=== PATIENT | female | born 1995 | race Two or more races ===

== ENCOUNTER 2024-09-04 10:20 | Emergency (ER) | payer OTHER, SELFPAY ==
[2024-09-04 10:21] VITALS: BMI 29.0
[2024-09-04 10:45] VITALS: BP 138/83; PULSE 90; RESP 18; TEMP 36.9; O2SAT 100
--- NOTE | 2024-09-04 10:48 | XR_ITS ---
Examination: CT abdomen with intravenous contrast CT pelvis with intravenous contrast 2-D coronal reconstructions 2-D sagittal reconstructions Date and time of exam:. September 06, 1999 3753 Indications: Sudden onset abdominal pain nausea vomiting today. CTDI: vol (mGy) 11.4 DLP: (mGycm) 575 Technique: Multiple axial sections of the abdomen and pelvis have been obtained. 64 slice high-resolution scanner used. 3 mm axial sections have been obtained, post intravenous injection 60 cc [id number] 2-D sagittal, coronal reconstructions obtained. Low dose protocols were performed. One or more of the following dose reduction techniques were used; automated exposure control, adjustment of the mA and/or KV according to patient size, use of iterative reconstruction technique. Findings: Liver mildly irregular in contour no focal liver lesions No gallstones Spleen not enlarged Tiny 1 to 2 mm renal calculi Aorta normal size Mild right hydronephrosis secondary to 4 mm distal right ureterovesical junction calculus No bowel obstruction No pericecal inflammatory change No diverticulitis Bladder intact Moderate to advanced disc narrowing L5-S1 Impression: Mild right hydronephrosis secondary to 4 mm distal right ureterovesical junction calculus
--- NOTE | 2024-09-04 10:49 | PD.EDRME ---
Rapid Medical Screening Exam RME Arrival date/time: 09/04/24 10:20 29 yo f present to Ed for c/o of RLQ pain + n/v I have greeted and performed a focused initial assessment of this patient. A comprehensive ED assessment and evaluation of the patient, analysis of all test results, and completion of the medical decision making process will be conducted by additional ED providers. Chief Complaint: Abdominal Pain Time Seen by Provider: 09/04/24 10:22
[2024-09-04 11:13] LABS: Basophils # (Auto) 0.1 Thou/mm3 (0.0-0.2); Basophils % (Auto) 1 % (0-2.5); Eosinophils # (Auto) 0.1 Thou/mm3 (0.0-0.5); Eosinophils % (Auto) 1 % (0-10); Hematocrit 39.5 % (36.0-46.0); Hemoglobin 13.4 g/dL (12.0-16.0); Immature Granulocytes % (Auto) 0 % (0-0); Immature Granulocytes Auto 0.04 Thou/mm3 (0.00-0.00); Lymphocytes # (Auto) 3.2 Thou/mm3 (1.0-4.8); Lymphocytes % (Auto) 28 % (10-50); Mean Corpuscular HGB Conc 33.9 g/dl (31.0-37.0); Mean Corpuscular Hemoglobin 28.6 pg (25.0-35.0); Mean Corpuscular Volume 84 fL (80-100); Monocytes # (Auto) 0.5 Thou/mm3 (0.0-0.8); Monocytes % (Auto) 5 % (0-12); Neutrophils # (Auto) 7.5 Thou/mm3 (1.8-7.7); Neutrophils % (Auto) 66 % (37-80); Nucleated Red Blood Cell % 0 /100 WBC (0); Platelet Count 325 Thou/mm3 (140-440); RDW Standard Deviation 40.3 fL (36.4-46.3); Red Blood Count 4.69 Miln/mm3 (4.00-5.20); White Blood Count 11.5 Thou/mm3 (3.6-11.0)
[2024-09-04 11:18] LABS: HCG,Qualitative Serum Negative
[2024-09-04] MEDS: SODIUM CHLORIDE 0.9% 1000 ML 1,000 ML 999 ML IV (11:20)
[2024-09-04] MEDS: ONDANSETRON INJ 2 MG/ML INJ 2 ML 4 MG IV (11:21)
[2024-09-04] MEDS: MORPHINE SULF INJ 10 MG/ML VIAL 4 MG IVP (11:22)
[2024-09-04 11:23] LABS: Alanine Aminotransferase 14 U/L (10-49); Albumin, Serum 4.6 gm/dL (3.5-5.0); Albumin/Globulin Ratio 1.6 (1.2-2.2); Alkaline Phosphatase 37 U/L (46-116); Anion Gap 12 (7-16); Aspartate Amino Transferase 18 U/L (0-34); BUN/Creatinine Ratio 15 Ratio (12-20); Bilirubin,Total 0.6 mg/dL (0.3-1.2); Blood Urea Nitrogen 12 mg/dL (9-23); Calcium 9.9 mg/dL (8.3-10.6); Calcium (Corrected) 9.9 mg/dL (8.5-10.1); Carbon Dioxide 21.6 mMol/L (20.0-31.0); Chloride 109 mMol/L (98-107); Creatinine (Component) 0.8 mg/dL (0.6-1.3); Estimated Creatinine Clearance 109.8 mL/min (>60); Globulin 2.8 gm/dL (2.3-3.5); Glucose 103 mg/dL (74-106); Lipase 41 U/L (12-53); Osmolality,Calculated 284 (275-295); Potassium 4.3 mMol/L (3.4-5.1); Sodium 143 mMol/L (136-145); Total Protein 7.4 gm/dL (5.7-8.2); eGFR > 60 See Note
[2024-09-04] MEDS: DiphenhydrAMINE INJ 50 MG/ML VIAL IVP (11:31)
[2024-09-04 11:37] VITALS: BP 130/86; PULSE 88; RESP 18; TEMP 37.3; O2SAT 100
[2024-09-04 12:21] LABS: Collection Type, Urine Clean Catch
[2024-09-04 12:30] LABS: Bilirubin,Urine Negative (Negative); Blood,Urine 2+ (Negative); Clarity,Urine Hazy (Clear/Hazy); Color,Urine Yellow (Lt Yel-Yel); Culture Indicated,Urine Not Indicated; Glucose, Urine Negative (Negative); Ketones,Urine 1+ (Negative); Leukocyte Esterase,Urine Positive (Negative); Nitrite,Urine Negative (Negative); PH,Urine 7.5 (5.0-7.0); Protein,Urine Trace (Neg - Trace); RBC,Urine 128 /hpf (0-3); Specific Gravity,Urine 1.032 (1.001-1.035); Squamous Epithelial Cell,Urine 7 /hpf (0-5); Urobilinogen,Urine Negative mg/dL (0.0-1.0); WBC,Urine 2 /hpf (0-5)
--- NOTE | 2024-09-04 12:57 | EDNOTE_ITS ---
ED General RME/HPI General Chief complaint: Abdominal Pain Stated complaint: R) LOWER QUADRANT PAIN, NAUSEA Time Seen by Provider: 09/04/24 10:22 Arrival date/time: 09/04/24 10:20 RME / HPI RME / HPI narrative: Patient is a 29 years old female with no significant past medical history presented to the ED complaining of RLQ pain. The pain started this morning and is dull in nature. She denied any blood in urine, dysuria, melena, hematoschezia, diarrhea, fever, chills. She can't find comfortable position in bad and is constantly mooving. Her mother is at the bedside reports they have family history of kidney stones. Patient denied any recent sexual intercourse. She reported associated nausea but no vomiting. Related Data Previous Rx's ?Medication ?Instructions ?Recorded ibuprofen 600 mg tablet 600 mg PO TID PRN pain #10 t abs 09/04/24 tamsulosin 0.4 mg capsule 0.4 mg PO QDAY 7 days #7 cap s 09/04/24 Allergies Allergy/AdvReac Type Severity Reaction Status Date / Time morphine Allergy Intermediate rash Verified 09/04/24 11:37 Review of Systems Review of Systems Systems Reviewed: All systems reviewed, normal except as documented ED Exam Narrative Physical exam: Gen: Well-developed and well-nourished. HEENT: NCAT, PERRLA, EOMI, MMM, anicteric conjunctivae. CVS: normal S1 and S2. RRR. No M/R/G. Resp: CTA B/L. No rhonchi, rales, crackles or wheezing. Abd: soft, tender in RLQ, non-distended. BS+ in all 4 quadrants. : no CVA tenderness or suprapubic tenderness. MSK: Good ROM in BUE & BLE. No edema or rash. Neuro: CN II-XII grossly intact. Strength 5/5 in BUE & BLE. Alert and oriented x3. Psych: appropriate mood and affect. Course Course Course Narrative: Given morphine 4 mg IV, developed macular rash over her body. Zofran for nausea. Given benadryl [address] showed 4 mm stone in distal ureter right. Patient's symptoms suddenly resolved. Patient given Tamsulosin 0.4 mg x1. Quality Measures none Orders Category Date Time Status CT Screening NOW Care 09/04/24 10:48 Completed Insert IV STAT Care 09/04/24 10:[address] abdomen pelvis w con Stat Exams 09/04/24 10:48 Completed CBC Stat Lab 09/04/24 10:55 Completed CMP [Comprehensive Metabolic Panel] Stat Lab 09/04/24 10:55 Completed HCG,Qualitative Serum Stat Lab 09/04/24 10:55 Completed Lipase Stat Lab 09/04/24 10:55 Completed UA, C/S IF [Urinalysis, C/S if Indicated] Stat Lab 09/04/24 12:12 Completed Acetaminophen Tab [Tylenol ES Tab] Med 09/04/24 12:57 Discontinued 1,000 mg PO X1 ONE DiphenhydrAMINE INJ [Benadryl Inj] Med 09/04/24 11:28 Discontinued 50 mg IVP X1 ONE Ketorolac Inj [Toradol Inj] Med 09/04/24 13:34 Discontinued 15 mg IM X1 ONE Morphine Inj Med 09/04/24 10:48 Discontinued 4 mg IVP X1 ONE Ondansetron Inj [Zofran Inj] Med 09/04/24 10:48 Discontinued 4 mg IV X1 ONE Sodium Chloride 0.9% 1000 ml [Ns] 1,000 ml Med 09/04/24 10:49 Discontinued IV 999 mls/hr Tamsulosin HCl [Flomax] Med 09/04/24 13:34 Discontinued 0.4 mg PO X1 ONE Vital Signs Vital signs: Vital Signs Temperature 98.5 F 09/04/24 10:45 Pulse Rate 90 09/04/24 10:45 Respiratory Rate 18 09/04/24 10:45 Blood Pressure 138/83 H 09/04/24 10:45 Pulse Oximetry (%) 100 09/04/24 10:45 Oxygen Delivery Method Room Air 09/04/24 10:45 [facility] Patient data External records reviewed:: None Clinical information provided by:: patient, family and parent Social determinants that could affect healthcare access:: none Patient has the following chronic illnesses:: none How is presenting disease/condition affected by chronic disease/condition?: no chronic disease Evaluation data The following diagnostics were reviewed and interpreted by me:: lab results and radiology exam(s) Lab and/or radiology exams considered but not ordered:: Kidney US, urine culture, test Interpretation Summary: Consistent with nephrolithiasis Medications Medications considered but not ordered:: Ibuprofen, acetaminophen Medication administrations:: Medication Administration History Discontinued Medications Acetaminophen (Acetaminophen 500 Mg Tablet) 1,000 mg PO X1 ONE Stop: 09/04/24 12:58 Last Admin: 09/04/24 14:04 Dose: Not Given Documented By: JANET Non-Admin Reason: Patient Refused Diphenhydramine HCl (Diphenhydramine Inj 50 Mg/Ml Vial) 50 mg IVP X1 ONE Stop: 09/04/24 11:29 Last Admin: 09/04/24 11:31 Dose: 50 mg Documented By: JANET Sodium Chloride (Ns) 1,000 mls @ 999 mls/hr IV .Q1H1M ONE Stop: 09/04/24 11:49 Last Infusion: 09/04/24 12:25 Dose: Infused Documented By: Admin: 09/04/24 11:20 Dose: 999 mls/hr Documented By: GODFREY Ketorolac Tromethamine (Ketorolac Inj 60 Mg/2 Ml Vial) 15 mg IM X1 ONE Stop: 09/04/24 13:35 Morphine Sulfate (Morphine Sulf Inj 10 Mg/Ml Vial) 4 mg IVP X1 ONE Stop: 09/04/24 10:49 Last Admin: 09/04/24 11:22 Dose: 4 mg Documented By: GODFREY Ondansetron HCl (Ondansetron Inj 2 Mg/Ml Inj 2 Ml) 4 mg IV X1 ONE; Protocol Stop: 09/04/24 10:49 Last Admin: 09/04/24 11:21 Dose: 4 mg Documented By: GODFREY Tamsulosin HCl (Tamsulosin Hcl 0.4 Mg Capsule) 0.4 mg PO X1 ONE Stop: 09/04/24 13:35 Last Admin: 09/04/24 14:08 Dose: 0.4 mg Documented By: JANET Morphine 4 mg IV Ondansetron 4 mg IV Diphenhydramine 50 mg PO Tamsulosin 0.4 mg PO Consultations Consultation(s) initiated? (list below): No Diagnosis Differential Diagnosis ED Complaint MDM: Acute appendicitis, ovarian torsion, ectopic , Nephrolithiasis Most likely diagnosis given after review of the tests above:: Nephrolithiasis Admission Indicated Admission indicated?: not indicated Explain why admission is indicated or not indicated:: Patient was found to have right 4 mm stone in distal ureter and mild hydronephrosis. Her symptoms suddenly resolved, she likely passed stone. Admission Request Was there a request for admission?: No Disposition Plan Disposition Plan: Discharge Discharge Attestation Discharge Attestation: The patient and all family members were given an opportunity to ask questions and understood the discharge instructions. Discharge instructions specifically effects, indications for sooner follow up or return to the emergency department, and the expected course of current diagnosis. Patient condition: Stable Medical Decision Making MDM Narrative MDM Narrative: Patient was found to have right 4 mm stone in distal ureter and mild hydronephrosis. Her symptoms suddenly resolved without any treatment and she remained asymptomatic during the rest of the ED stay. No admission is indicated. Given family history of kidney stones she will need to follow up with PCP for further work up. We will prescribe her tamsulosin for 1 week. Differential Diagnosis Differential Diagnosis: Acute appendicitis, ovarian torsion, ectopic , Nephrolithiasis Lab Data 09/04/24 10:55 09/04/24 10:55 Labs: Lab Results 09/04/24 09/04/24 Range/Units 10:55 12:12 WBC 11.5 H (3.6-11.0) Thou/mm3 RBC 4.69 (4.00-5.20) Miln/mm3 Hgb 13.4 (12.0-16.0) g/dL Hct 39.5 (36.0-46.0) % MCV 84 (80-100) fL MCH 28.6 (25.0-35.0) pg MCHC 33.9 (31.0-37.0) g/dl RDW Std Deviation 40.3 (36.4-46.3) fL Plt Count 325 (140-440) Thou/mm3 Neut % (Auto) 66 (37-80) % Lymph % (Auto) 28 (10-50) % [place] % (Auto) 5 (0-12) % Eos % (Auto) 1 (0-10) % Baso % (Auto) 1 (0-2.5) % Neut # (Auto) 7.5 (1.8-7.7) Thou/mm3 Lymph # (Auto) 3.2 (1.0-4.8) Thou/mm3 [place] # (Auto) 0.5 (0.0-0.8) Thou/mm3 Eos # (Auto) 0.1 (0.0-0.5) Thou/mm3 Baso # (Auto) 0.1 (0.0-0.2) Thou/mm3 Immature Gran # (Auto) 0.04 H (0.00-0.00) Thou/mm3 Absolute Nucleated RBC 0.00 (0.00-0.00) Thou/mm3 Immature Gran % 0 (0-0) % Nucleated RBC % 0 (0) /100 WBC Sodium 143 (136-145) mMol/L Potassium 4.3 (3.4-5.1) mMol/L Chloride 109 H (98-107) mMol/L Carbon Dioxide 21.6 (20.0-31.0) mMol/L Anion Gap 12 (7-16) BUN 12 (9-23) mg/dL Creatinine 0.8 (0.6-1.3) mg/dL Estim Creat Clear Calc 109.8 (>60) mL/min eGFR > 60 (60 - ) See Note BUN/Creatinine Ratio 15 (12-20) Ratio Glucose 103 (74-106) mg/dL Calculated Osmolality 284 (275-295) Calcium 9.9 (8.3-10.6) mg/dL Corrected Calcium 9.9 (8.5-10.1) mg/dL Total Bilirubin 0.6 (0.3-1.2) mg/dL AST 18 (0-34) U/L ALT 14 (10-49) U/L Alkaline Phosphatase 37 L (46-116) U/L Total Protein 7.4 (5.7-8.2) gm/dL Albumin 4.6 (3.5-5.0) gm/dL Globulin 2.8 (2.3-3.5) gm/dL Albumin/Globulin Ratio 1.6 (1.2-2.2) Lipase 41 (12-53) U/L HCG, Qual Negative Ur Collection Type Clean Catch Urine Color Yellow (Lt Yel-Yel) Urine Clarity Hazy (Clear/Hazy) Urine pH 7.5 H (5.0-7.0) Ur Specific [place] 1.032 (1.001-1.035) Urine Protein Trace (Neg - Trace) Urine Glucose (UA) Negative (Negative) Urine Ketones 1+ A (Negative) Urine Blood 2+ A (Negative) Urine Nitrite Negative (Negative) Urine Bilirubin Negative (Negative) Urine Urobilinogen (Auto) Negative (0.0-1.0) mg/dL Ur Leukocyte Esterase Positive (Negative) Urine RBC 128 H (0-3) /hpf Urine WBC 2 (0-5) /hpf Ur Squamous Epith Cells 7 H (0-5) /hpf Urine Bacteria None (None) Ur Culture Indicated? Not Indicated Discharge Plan Plan Patient Disposition: HOME (Self Care) Patient condition on transfer: Stable Prescriptions/Referrals Prescriptions/Med Rec: New tamsulosin 0.4 mg capsule 0.4 mg PO QDAY 7 Days Qty: 7 0RF ibuprofen 600 mg tablet 600 mg PO TID MDD 1800 mg PRN (Reason: pain) Qty: 10 0RF Referrals: No Primary/Family,Physician [Primary Care Provider] - In 1 week Problem List Clinical Impression: Nephrolithiasis Patient/Caregiver Discharge Instructions Additional Instructions: Take Tamsulosin 0.4 mg daily for 7 days. Take Ibuprofen 600 mg as needed up to 3 times a day for pain. Print Language: Bel[place]ian Stand Alone Forms: [employer]adi Award Info., Patient Portal Info Letter
[2024-09-04] MEDS: TAMSULOSIN HCL 0.4 MG CAPSULE PO (14:08)
[2024-09-04 14:12] VITALS: BP 124/72; PULSE 72; RESP 18; TEMP 36.9; O2SAT 99
[2024-09-04 14:25] VITALS: BP 124/72; PULSE 72; RESP 18; TEMP 36.9; O2SAT 99
== END 2024-09-04 14:25 | disposition home or self-care (01) ==
PROVIDERS: Physician Assistant; Emergency Provider Student in an Organized Health Care Education/Training Program
DX: N20.0 Calculus of kidney (principal)
CPT/HCPCS: 36415; 74177; 80053; 81001; 83690; 84703; 85025; 96361; 96374; 96375; 99285; A4649; J1200; J2270; J2405; J7030; Q9967; A9270